=== PATIENT | female | born 2000 | race Caucasian/White ===

== ENCOUNTER 2023-06-24 15:50 | Emergency (ER) | payer SELFPAY ==
[2023-06-24 15:59] VITALS: BP 134/88; PULSE 80; RESP 14; TEMP 36.7; O2SAT 100; BMI 36.8
[2023-06-24 16:39] LABS: Add Manual Diff / Slide Review NO; Basophils Absolute Auto 100 /uL (0-100); Basophils Percent Auto 1.3 % (0-2); Eosinophils Absolute Auto 300 /uL (0-450); Eosinophils Percent Auto 3.1 % (2-4); Hematocrit 39.5 % (36-46); Hemoglobin 13.7 g/dL (12.0-16.0); Lymphocytes Absolute Auto 2400 /uL (1100-4500); Lymphocytes Percent Auto 24.4 % (25-40); Mean Corpuscular HGB Conc 34.7 % (30-36); Mean Corpuscular Hemoglobin 29.6 PG (26-34); Mean Corpuscular Volume 85.3 fL (80-100); Monocytes Absolute Auto 600 /uL (0-900); Monocytes Percent Auto 6.3 % (3-14); Neutrophils Absolute Auto 6400 /uL (1500-7000); Neutrophils Percent Auto 64.9 % (50-75); Platelet Count 323 X10^3/uL (150-400); Red Blood Cell Count 4.63 X10^6/uL (4.0-5.2); White Blood Cell Count 9.9 X10^3/uL (4.5-11.0)
[2023-06-24 17:02] LABS: BUN Creatinine Ratio 17.6 (6-22); Blood Urea Nitrogen 12 mg/dL (7-17); Calcium 9.4 mg/dL (8.4-10.2); Carbon Dioxide 25 mmol/L (22-32); Chloride 104 mmol/L (98-107); Estimated Glomerular Filt Rate > 60 mL/min (>60); Glucose 87 mg/dL (70-100); HEMOLYSIS 17 (0-50); Potassium 3.9 mmol/L (3.4-5.1); Sodium 138 mmol/L (137-145)
--- NOTE | 2023-06-24 19:41 | DI.US.S_ITS ---
PROCEDURE: US PELVIC COMPLETE INDICATIONS: VAGINAL BLEEDING TECHNIQUE: Real-time scanning was performed of the pelvic organs, with image documentation. COMPARISON: None. FINDINGS: Uterus: Uterus is retroverted and normal in size at 6.7 x 4.4 x 6.3 cm. The myometrium is homogeneous. The endometrium measures 10 mm combined thickness. Ovaries: The right ovary measures 4.5 x 3.9 x 3.2 cm, with a calculated ovarian volume of 30 cc. The left ovary is not visualized due to transabdominal technique. Other: No pathologic free abdominal or pelvic fluid. IMPRESSION: No acute abnormality. Endometrial stripe measures 10 mm, within normal limits for age. We strive to produce accurate, complete, and clear reports of imaging services. To assist us in improving patient care, this report was composed using standard report templates and voice recognition software. Therefore, it may contain abnormal punctuation, insertions and/or omissions. Occasional wrong-word or sound-alike substitutions may occur. Though we review the report and make efforts to correct it, we do recommend that the report be read carefully in proper context to recognize any text inaccuracies. Dictated by: Kamar Ruiz M.D. on 06/24/2023 at 20:47 Approved by: Kamar Ruiz M.D. on 06/24/2023 at 20:49
--- NOTE | 2023-06-24 21:35 | ED_ITS ---
HPI - Female Genitourinary General Chief complaint: Vaginal Bleeding Stated complaint: Vaginal bleeding Time Seen by Provider: 06/24/23 19:41 Source: patient Mode of arrival: Ambulatory Limitations: no limitations History of Present Illness HPI Narrative: 22-year-old healthy female with complaint of vaginal bleeding. Patient states she had no regular menses for the month of January and March, she started having menses on April 25 the lasted about 3 weeks. She started bleeding 2 days ago and then had a large amount of bleeding this morning starting at 9:00 a.m. going through more than a pad an hour for a period of time. She states it is since slowed. She denies lightheadedness no passing out, no chest pain no shortness of breath. No nausea no vomiting. She denies abdominal back or flank pain she states no new discharge. No other urinary or GI symptoms. Patient states she used to have regular periods that would very by a day or 2. Patient denies any daily medical issues. No prior medications. She is not on any oral contraceptives or other contraceptives. No surgeries. Denies tobacco, alcohol or illicit. Patient lives in [place] and has primary care follow-up there. Related Data Allergies Allergy/AdvReac Type Severity Reaction Status Date / Time No Known Drug Allergies Allergy Verified 06/24/23 15:59 Review of Systems Review of Systems ROS Unobtainable: All systems reviewed & are unremarkable except as noted in HPI and below Patient History alcohol intake frequency: holidays/special occasions only Substance Use Type: does not use Exam Narrative Exam Narrative: GENERAL: Alert and oriented x three, female in mild distress. HEENT: Head normocephalic, atraumatic, EOMI, pupils reactive, face symmetric, moist mucous membranes NECK: Supple, full range of motion CARDIOVASCULAR: Regular rate and rhythm without murmurs, rubs or gallops. RESPIRATORY: Breath sounds equal bilaterally, no wheezes rales or rhonchi. ABDOMEN: Soft, nontender. Normoactive bowel sounds all 4 quadrants. No guarding or rebound, rigidity, no mass : No CVA tenderness EXTREMITIES: Normal range of motion, no clubbing or edema. Neurovascularly intact NEUROLOGICAL: Cranial nerves II through XII grossly intact. Moving all extremities SKIN: Warm, dry, no petechiae, no rashes or lesions. Initial Vital Signs Initial Vital Signs: Vital Signs Temperature 98.1 F 06/24/23 15:59 Pulse Rate 80 06/24/23 15:59 Respiratory Rate 14 06/24/23 15:59 Blood Pressure 134/88 06/24/23 15:59 Pulse Oximetry 100 06/24/23 15:59 Oxygen Delivery Method Room Air 06/24/23 15:59 Course Orders Ordered: ED Orders 06/24/23 16:15 Basic Metabolic Panel Stat Complete Blood Count AUTO DIFF Stat 06/24/23 16:21 Type and Screen Stat 06/24/23 19:41 US pelvic complete Stat Vital Signs Vital signs: Vital Signs - 8 hr 06/24/23 15:59 06/24/23 21:38 Temperature 98.1 F Pulse Rate 80 72 Respiratory Rate 14 18 Blood Pressure 134/88 99/61 Pulse Oximetry 100 99 Oxygen Delivery Method Room Air Room Air MDM - Female Genitourinary Lab Data 06/24/23 16:15 06/24/23 16:15 Labs: Lab Results 06/24/23 06/24/23 06/24/23 Range/Units 16:15 16:15 16:21 WBC 9.9 (4.5-11.0) X10^3/uL RBC 4.63 (4.0-5.2) X10^6/uL Hgb 13.7 (12.0-16.0) g/dL Hct 39.5 (36-46) % MCV 85.3 (80-100) fL MCH 29.6 (26-34) PG MCHC 34.7 (30-36) % RDW 13.0 (11.6-14.8) % Plt Count 323 (150-400) X10^3/uL Neut % (Auto) 64.9 (50-75) % Lymph % (Auto) 24.4 L (25-40) % [place] % (Auto) 6.3 (3-14) % Eos % (Auto) 3.1 (2-4) % Baso % (Auto) 1.3 (0-2) % Neut # (Auto) 6400 (0178-8362) /uL Lymph # (Auto) 2400 (2459-9628) /uL [place] # (Auto) 600 (0-900) /uL Eos # (Auto) 300 (0-450) /uL Baso # (Auto) 100 (0-100) /uL Sodium 138 (137-145) mmol/L Potassium 3.9 (3.4-5.1) mmol/L Chloride 104 (98-107) mmol/L Carbon Dioxide 25 (22-32) mmol/L BUN 12 (7-17) mg/dL Creatinine 0.68 (0.52-1.04) mg/dL Estimated GFR > 60 (>60) mL/min BUN/Creatinine Ratio 17.6 (6-22) Glucose 87 (70-100) mg/dL Calcium 9.4 (8.4-10.2) mg/dL Blood Type O Positive Antibody Screen Negative Point of Care Testing Test Results Negative Urine Dip Bedside Urine Glucose Negative Bedside Urine Bilirubin - Negative Bedside Urine Ketone - Negative Urine Specific [place] 1.025 Bedside Urine Occult Blood +++ Bedside Urine pH 6.0 Bedside Urine Protein - Negative Bedside Urine Urobilinogen - Negative Bedside Urine Nitrite - Negative Bedside Urine Leukocytes - Negative Esterase MDM Narrative Medical decision making narrative: Patient's labs show WBC 9.9, hemoglobin 13.7 platelets of 323. BMP shows sodium 138 otherwise normal electrolytes, renal function and glucose. Point of care urine is positive for blood, no nitrates or leuks. Negative . Pelvic ultrasound shows no acute abnormality endometrial stripe measures 10 mm with a normal limits for age. Right ovary is 3.9 cm left ovary not visualized secondary to transabdominal technique, patient had deferred intravaginal. Patient notes bleeding has significantly slowed since her arrival here. She states she feels good and feels comfortable to return home. Her primary care is in [place], discussed can give referral locally but do not have any names here. She will follow up with her primary care. We discussed return precautions all questions answered. Discharge Plan Departure Patient Disposition: Home Clinical Impression: Vaginal bleeding Instructions: DI for Vaginal Bleeding Activity Restrictions/Additional Instructions: Please follow-up with primary care avian keeper for your vaginal bleeding. It is sometimes helpful to be on control or similar medication and they may pursue some additional workup. Please return if you are having new or worsening symptoms, abdominal back or flank pain, lightheadedness or passing out, new chest pain or shortness of breath, persistent vomiting, bleeding through more than a pad or tampon an hour or other new or concerning changes. Stand Alone Forms: Patient Portal/API
[2023-06-24 21:38] VITALS: BP 99/61; PULSE 72; RESP 18; O2SAT 99
== END 2023-06-24 22:10 | disposition home or self-care (01) ==
PROVIDERS: Emergency Medicine; Emergency Provider Emergency Medicine
DX: N93.9 Abnormal uterine and vaginal bleeding, unspecified (principal)
CPT/HCPCS: 36415; 76856; 80048; 81003; 81025; 85025; 86850; 86900; 86901; 99282; 99284